=== PATIENT | male | born 1990 | race Caucasian/White ===

== ENCOUNTER 2020-05-16 23:09 | Emergency (ER) | payer BC, SELFPAY ==
[2020-05-16 23:31] VITALS: BP 140/88; PULSE 78; RESP 18; TEMP 36.6; O2SAT 100
[2020-05-16 23:54] LABS: Basophils Absolute Auto 0.1 K/mm3 (0.0-0.1); Basophils Percent Auto 0.5 % (0.2-1.2); Eosinophils Absolute Auto 0.3 K/mm3 (0-0.3); Eosinophils Percent Auto 3.1 % (0-4.4); Hemoglobin 17.6 g/dL (14.0-18.0); Immature Granulocyte Absolute 0.04 K/mm3 (0.00-0.031); Immature Granulocyte Percent A 0.4 % (0-0.5); Lymphocytes Absolute Auto 1.68 K/mm3 (0.9-3.2); Lymphocytes Percent Auto 17.6 % (18.3-44.2); Mean Corpuscular HGB Conc 34.5 g/dl (32-36); Mean Corpuscular Hemoglobin 29.8 pg (26-34); Mean Corpuscular Volume 86.3 fl (80-100); Mean Platelet Volume 8.8 fl (7.4-10.4); Monocytes Absolute Auto 0.6 K/mm3 (0.1-0.6); Monocytes Percent Auto 5.8 % (2.6-8.5); Neutrophils Absolute Auto 6.9 K/mm3 (1.3-6.7); Neutrophils Percent Auto 72.6 % (45.5-73.1); Platelet Count Result 202 k/mm3 (150-375); Red Blood Count 5.91 M/mm3 (4.6-6.20); Red Cell Distribution Width 12.5 % (11.5-14.5); White Blood Count 9.5 K/mm3 (4.5-10.0)
[2020-05-17 00:03] LABS: Alanine Aminotransferase 17 U/L (4-50); Albumin Level 5.1 g/dL (3.5-5.1); Alkaline Phosphatase 60 U/L (38-126); Anion Gap 8 mmol/L (8-16); Aspartate Amino Transferase 25 U/L (17-59); Bilirubin,Total 0.8 mg/dL (0.2-1.3); Blood Urea Nitrogen 19 mg/dL (9-20); Calcium 10.4 mg/dL (8.4-10.2); Carbon Dioxide 34 mmol/L (22-30); Chloride 101 mmol/L (98-107); Estimated CRCL calculation 72 ml/min; Estimated Glomerular Filt Rate 60; Glucose 109 mg/dL (75-110); Lipase 114 U/L (23-300); Potassium 4.2 mmol/L (3.4-5.0); Sodium 143 mmol/L (137-145)
[2020-05-17 00:15] LABS: Add Urine Microscopic? YES; Amorphous Sediment Urine Few; Appearance Urine Cloudy (Clear); Bacteria Urine Trace /hpf; Bilirubin Urine Negative (Negative); Blood Urine Negative (Negative); Color Urine Yellow (Yellow); Glucose Urine UA Negative (Negative); Ketones Urine Trace mg/dL (Negative); Leukocyte Esterase Ur Negative LEU/UL (Negative); Mucus Urine Rare /lpf; Nitrate Urine Negative (Negative); Protein Urine 1+ mg/dL (Negative); Specific Grav Ur 1.026 (1.001-1.035); Squamous Epithelial Cell Urine Rare /hpf (Few)
--- NOTE | 2020-05-17 01:11 | ED.ABDPAIN ---
HPI - Abdominal Pain General Chief Complaint: Abdominal Pain Stated Complaint: abd & back pain Time Seen by Provider: 05/17/20 01:07 History of Present Illness HPI narrative: Epigastric pain since lunch today. Worse since dinner and radiating to the back. He reports h/o GERD. More recnetly he has had some mild dysphagia and odynophagia. At the time of assessment his pain is only mild. No family h/o gall bladder disease. Related Data Allergies Allergy/AdvReac Type Severity Reaction Status Date / Time No Known Allergies Allergy Mild Unverified 02/05/09 00:08 amoxicillin Allergy Unknown Skin Verified 08/12/17 21:20 Reaction Review of Systems Review of Systems: All systems reviewed & are unremarkable except as noted in HPI and below Constitutional: Constitutional: Denies fever(s) ENT: Reports sore throat Cardiovascular: Cardiovascular: Reports chest pain Respiratory: Respiratory: Denies dyspnea Gastrointestinal: Gastrointestinal: Reports abdominal pain and Reports nausea Musculoskeletal: Musculoskeletal: Reports back pain [facility] Past Medical History Medical History (Updated 05/17/20 @ 04:53 by Veto Louie MD) GERD (gastroesophageal reflux disease) Social History Social History (Updated 05/17/20 @ 04:53 by Veto Louie MD) Smoking status: Never smoker Exam Const: General: healthy appearing, no acute distress and alert Orientation/consciousness: patient oriented x3 HENMT: Head: normal to inspection Neck: Neck: normal visual inspection and no lymphadenopathy Chest: Chest palpation & inspection: no tenderness Resp: Effort & Inspection: normal respiratory effort Auscultation: clear to auscultation bilaterally, no rales, no rhonchi and no wheezes Cardio: Jugular venous distension: no JVD Rate: regular rate Rhythm: regular rhythm Heart sounds: no murmurs GI: Inspection: non-distended GI Palp: Yes Soft to palpation and Yes Tenderness to palpation present (GI) (epigastric) Skin: General skin exam: normal color Neuro: General: patient oriented x3 and moves all extremities Speech: normal speech Extrem: General: no edema Psych: Appearance: well kempt Affect: normal affect Course Vital Signs Vital signs: Vital Signs Temperature 36.6 C 05/16/20 23:31 Pulse Rate 78 05/16/20 23:31 Respiratory Rate 18 05/16/20 23:31 Blood Pressure 140/88 05/16/20 23:31 Pulse Oximetry 100 05/16/20 23:31 Temperature 36.7 C 05/17/20 02:39 Pulse Rate 78 05/17/20 02:39 Respiratory Rate 16 05/17/20 02:39 Blood Pressure 134/76 05/17/20 02:39 Pulse Oximetry 100 05/17/20 02:39 MDM - Abdominal Pain MDM Narrative Medical decision making narrative: History most concerning for gastric or esophageal pathology. I advised him that he will likely need follow-up for endoscopy. I will start him on acid controlling medications in ht mean time. Medical Records Attestation: I reviewed the patient's medical records. Lab Data Attestation: I reviewed the patient's lab results. Result diagrams: 05/16/20 23:41 05/16/20 23:41 Labs: Lab Results 05/16/20 05/16/20 05/16/20 Range/Units 23:41 23:41 23:41 WBC 9.5 (4.5-10.0) K/mm3 RBC 5.91 (4.6-6.20) M/mm3 Hgb 17.6 (14.0-18.0) g/dL Hct 51.0 (42.0-52.0) % MCV 86.3 (80-100) fl MCH 29.8 (26-34) pg MCHC 34.5 (32-36) g/dl RDW 12.5 (11.5-14.5) % Plt Count 202 (150-375) k/mm3 MPV 8.8 (7.4-10.4) fl Immature Gran % (Auto) 0.4 (0-0.5) % Neut % (Auto) 72.6 (45.5-73.1) % Lymph % (Auto) 17.6 L (18.3-44.2) % [place] % (Auto) 5.8 (2.6-8.5) % Eos % (Auto) 3.1 (0-4.4) % Baso % (Auto) 0.5 (0.2-1.2) % Lymph # (Auto) 1.68 (0.9-3.2) K/mm3 [place] # (Auto) 0.6 (0.1-0.6) K/mm3 Eos # (Auto) 0.3 (0-0.3) K/mm3 Baso # (Auto) 0.1 (0.0-0.1) K/mm3 Abs Immat Gran (auto) 0.04 H (0.00-0.031) K/mm3 Absolute Neuts (auto) 6.9 H
[2020-05-17] MEDS: BELLADONNA ALK/PHENOB ELIX 10 ML, MAG HYDROX/ALUMINUM HYD/SIMETH 30 ML, LIDOCAINE HCL 2... PO (01:37)
[2020-05-17 01:51] VITALS: BP 131/82; PULSE 71; RESP 16; O2SAT 98
[2020-05-17 02:39] VITALS: BP 134/76; PULSE 78; RESP 16; TEMP 36.7; O2SAT 100
== END 2020-05-17 02:40 | disposition home or self-care (01) ==
PROVIDERS: Emergency Provider Emergency Medicine; PCP Family Medicine
DX: R10.13 Epigastric pain (principal); K21.9 Gastro-esophageal reflux disease without esophagitis
CPT/HCPCS: 36415; 80053; 81001; 83690; 85025; 99283; A9270